=== PATIENT | female | born 1960 | race Caucasian/White ===

== ENCOUNTER 2017-04-19 11:21 | Emergency (ER) | payer OTHER ==
[~2017-04-19] VITALS: Ht 167.6 cm; Wt 54.4 kg
--- NOTE | 2017-04-19 11:21 | NUR ---
BG 32. ERMD AWARE.
[2017-04-19] MEDS ORDERED: DEXTROSE 50%-WATER 50 ML DISP.SYRIN ONE (11:25)
--- NOTE | 2017-04-19 11:28 | NUR ---
PURA FROM A PARKED CAR FOR POSSIBLE LOW BLOOD SUGAR. PATIENT RECEIVED AAO4. APPEAR IN NO APPARENT DISTRESS. RESPIRATION EVEN AND UNLABORED. SKIN IS WARM TO TOUCH AND NON DIAPHORETIC AFEBRILE. VSS
[2017-04-19] MEDS ORDERED: DEXTROSE 50%-WATER 50 ML DISP.SYRIN IVP ONE (11:30)
--- NOTE | 2017-04-19 11:31 | NUR ---
RAY AT BEDSIDE
[2017-04-19 11:45] LABS: BASOPHILS % (AUTO) 0.4 % (0.0-2.0); EOSINOPHILS # (AUTO) 0.1 /CMM (0.0-0.7); EOSINOPHILS % (AUTO) 0.8 % (0.0-6.0); HEMATOCRIT 48 % (33-45); HEMOGLOBIN 15.8 g/dL (11.5-14.8); LYMPHOCYTES # (AUTO) 1.4 /CMM (0.8-4.8); LYMPHOCYTES % (AUTO) 16.4 % (20.0-44.0); MEAN CORPUSCULAR HEMOGLOBIN 31 PG (26.0-33.0); MEAN CORPUSCULAR HGB CONC 33 g/dl (31.0-36.0); MEAN CORPUSCULAR VOLUME 93 fL (82-100); MONOCYTES # (AUTO) 0.4 /CMM (0.1-1.30); MONOCYTES % (AUTO) 5.2 % (2.0-12.0); NEUTROPHILS # (AUTO) 6.5 /CMM (1.8-8.9); NEUTROPHILS % (AUTO) 77.2 % (43.0-81.0); PLATELET COUNT (AUTO) 304 /CMM (150-450); RDW COEFFICIENT OF VARIATION 13.2 (11.5-15.0); RED BLOOD CELL COUNT(AUTO) 5.16 MIL/uL (4.0-5.2); WHITE BLOOD COUNT (AUTO) 8.4 K/uL (4.3-11.0)
[2017-04-19 11:56] LABS: CALCIUM, SERUM 9.7 mg/dL (8.5-10.1); CREATININE 0.9 mg/dL (0.6-1.3); POTASSIUM 3.9 mmol/L (3.5-5.1)
--- NOTE | 2017-04-19 12:47 | NUR ---
Patient does not wish to proceed with medical care recommended by Dr. pope. Patient given information related to possible complications, up to and including , which could occur as a result of leaving the hospital at this time. Patient verbalizes understanding of risks involved due to leaving against medical advice. Patient has signed AMA form.
[2017-04-19 12:48] VITALS: BP 138/82
--- NOTE | 2017-04-19 12:48 | NUR ---
Zuleyma hilliard in ED - 04/19/17 at 1248 by DAVID Patient discharged to home in stable condition. Written and verbal after care instructions given. Patient verbalizes understanding of instruction.
== END 2017-04-19 12:51 | disposition left against medical advice (07) ==
LOC: ER 11:31
DX: E11.649 Type 2 diabetes mellitus with hypoglycemia without coma (principal); E03.9 Hypothyroidism, unspecified; Z79.4 Long term (current) use of insulin
CPT/HCPCS: 36415; 80048; 82962; 85025; 93005; 96374; 99285; A4606; Z7610

== ENCOUNTER 2019-04-09 11:28 | Emergency (ER) | payer OTHER ==
[~2019-04-09] VITALS: Ht 167.6 cm; Wt 63.5 kg
--- NOTE | 2019-04-09 11:38 | NUR ---
CONCEPCION RA 102 "Bystander called she was found in her car acting strange +Sz during en route, on arrival BS-Low Given 250cc D10 repeat BS-208", to ER bed 6, hooked to monitor, BS upon arrival in ER 165, awaiting md meyer.
--- NOTE | 2019-04-09 11:40 | NUR ---
DR WALLIS AT BEDSIDE
--- NOTE | 2019-04-09 11:41 | NUR ---
patient refused blood tests and medications. only agreed to urinalysis.
--- NOTE | 2019-04-09 11:42 | NUR ---
URINE SAMPLE COLLECTED AND SENT TO LAB
[2019-04-09 11:51] LABS: APPEARANCE,URINE Clear (CLEAR); BILIRUBIN,URINE Negative (NEGATIVE); BLOOD, URINE Small Ery/uL (NEGATIVE); COLOR,URINE Yellow (YELLOW); KETONES,URINE 40 (NEGATIVE); LEUKOCYTE ESTERASE ,URINE Negative (NEGATIVE); NITRITE, URINE Negative (NEGATIVE); PH,URINE 7.5 (5.0-8.0); PROTEIN,URINE Trace mg/dl (NEGATIVE); UGLUCOSE 500 MG/DL mg/dL (NEGATIVE); UROBILINOGEN,URINE 0.2 EU/dL (0.2)
[2019-04-09 12:00] LABS: BACTERIA,URINE None seen /HPF (None Seen); SQUAMOUS EPITHELIAL CELL,UR Moderate /HPF (None Seen)
[2019-04-09] MEDS ORDERED: ONDANSETRON HCL/PF 4 MG/2 ML VIAL IVP ONE (12:00)
[2019-04-09] MEDS ORDERED: IV D5/ 0.9% NACL 1,000 ML IV ONE (12:00)
[2019-04-09 12:02] LABS: MUCUS,URINE Few /LPF (None Seen); URINE AMORPHOUS PHOSPHATES Many /HPF (None Seen)
--- NOTE | 2019-04-09 12:26 | NUR ---
IV removed. Catheter intact and site benign. Pressure and 4x4 applied to site. No bleeding noted.Patient discharged to home in stable condition. Written and verbal after care instructions given. Patient verbalizes understanding of instruction.
[2019-04-09 12:27] VITALS: BP 147/93
== END 2019-04-09 12:27 | disposition home or self-care (01) ==
LOC: ER 11:31
DX: E11.649 Type 2 diabetes mellitus with hypoglycemia without coma (principal); G93.41 Metabolic encephalopathy; E03.9 Hypothyroidism, unspecified
CPT/HCPCS: 81000-TC; 82962-TC

== ENCOUNTER 2020-01-12 22:39 | Inpatient (IN) | payer OTHER ==
[~2020-01-12] VITALS: Ht 157.5 cm; Wt 49.9 kg
--- NOTE | 2020-01-12 22:46 | NUR ---
PT AAOX3, BIBRA C/O CONFUSED. PT WAS FOUND WITH HIGH BLOOD SUGAR WHEN CHECKED EDGE CUTTER. UPON ARRIVAL BG CHECKED WHICH WAS HIGHER THAN 600. PLACED IN BED 2 ON MONITOR AND PULSE OX. NO ACUTE DISTRESS NOTED. MD AT BEDSIDE FOR EVAL. AWAITING ORDERS.
--- NOTE | 2020-01-12 22:52 | NUR ---
DR HEMPHILL AT BED SIDE
[2020-01-12] MEDS ORDERED: INSULIN REGULAR, HUMAN 100 UNIT/ML 10 ML VIAL IV ONE (23:00)
[2020-01-12] MEDS ORDERED: IV NS 0.9% 1,000 ML BAG IV ONE ×2 (23:00)
[2020-01-12] MEDS ORDERED: INSULIN REGULAR, HUMAN 100 UNIT/ML 10 ML VIAL ONE (23:13)
[2020-01-12 23:16] LABS: BASOPHILS % (AUTO) 0.7 % (0.0-2.0); EOSINOPHILS % (AUTO) 0.1 % (0.0-6.0); HEMATOCRIT 43 % (33-45); HEMOGLOBIN 14.4 g/dL (11.5-14.8); LYMPHOCYTES # (AUTO) 0.6 /CMM (0.8-4.8); LYMPHOCYTES % (AUTO) 10.3 % (20.0-44.0); MEAN CORPUSCULAR HGB CONC 34 g/dl (31.0-36.0); MEAN CORPUSCULAR VOLUME 94 fL (82-100); MONOCYTES # (AUTO) 0.7 /CMM (0.1-1.30); MONOCYTES % (AUTO) 12.8 % (2.0-12.0); NEUTROPHILS # (AUTO) 4.2 /CMM (1.8-8.9); NEUTROPHILS % (AUTO) 76.1 % (43.0-81.0); PLATELET COUNT (AUTO) 247 /CMM (150-450); RED BLOOD CELL COUNT(AUTO) 4.54 MIL/uL (4.0-5.2); WHITE BLOOD COUNT (AUTO) 5.5 K/uL (4.3-11.0)
--- NOTE | 2020-01-12 23:17 | NUR ---
AMBULATED TO THE RESTROOM
--- NOTE | 2020-01-12 23:21 | NUR ---
PT REMAINED IN THE RESTROOM. UNABLE TO PROVIDE URINE.
[2020-01-12 23:35] LABS: ALANINE AMINOTRANSFERASE 26 U/L (12-78); ALBUMIN 3.6 g/dL (3.4-5.0); ALKALINE PHOSPHATASE 83 U/L (46-116); ASPARTATE AMINOTRANSFERASE 45 U/L (15-37); BILIRUBIN,DIRECT 0.4 mg/dL (0.0-0.2); BILIRUBIN,TOTAL 1.4 mg/dL (0.2-1.0); CALCIUM, SERUM 9.1 mg/dL (8.5-10.1); CARBON DIOXIDE 32 mmol/L (21-32); UREA NITROGEN, BLOOD 41 mg/dL (7-18)
[2020-01-12 23:38] LABS: CHLORIDE 72 mmol/L (98-107); GLUCOSE 637 mg/dL (74-106); POTASSIUM 2.2 mmol/L (3.5-5.1); SODIUM SERUM 119 mmol/L (136-145)
[2020-01-12] MEDS ORDERED: POTASSIUM CL. PREMIX PERIPHER. 50 ML IV ONE (23:41)
[2020-01-12] MEDS ORDERED: POTASSIUM CHLORIDE 20 MEQ TAB.PRT.SR PO ONE (23:49)
[2020-01-12] MEDS ORDERED: POTASSIUM CL. PREMIX PERIPHER. 50 ML ONE (23:49)
--- NOTE | 2020-01-12 23:50 | NUR ---
PT BROUGHT TO CT AND BACK
[2020-01-13] MEDS ORDERED: LORAZEPAM INJ 2 MG/ML VIAL IV ONE
[2020-01-13] MEDS ORDERED: LORAZEPAM INJ 2 MG/ML VIAL ONE
[2020-01-13 00:02] LABS: THYROID STIMULATING HORMONE 0.869 uIU/mL (0.358-3.74)
[2020-01-13 00:05] LABS: SERUM AMMONIA < 10 umol/L (11-32)
[2020-01-13 00:14] LABS: ABG OXYGEN SATURATION 60.3 % (92.0-98.5); ABG PCO2 48.2 mmHg (35.0-45.0); ABG PH 7.432 (7.350-7.450); ABG PO2 31.2 mmHg (75.0-100.0); COHb 2.6 % (0.5-1.5); MetHb 0.4 % (0.0-1.5); O2Hb 58.5 % (94.0-97.0); SITE, ABG Other; VENT MODE, BG RA
--- NOTE | 2020-01-13 00:19 | NUR ---
PT RESTING COMFORTABLY. PT IS CONFUSED. PT SPEAKING ABOUT INSULIN DOSES.
[2020-01-13 00:46] LABS: ALCOHOL, BLOOD < 3 mg/dL (0-0)
[2020-01-13] MEDS ORDERED: POTASSIUM CL. PREMIX PERIPHER. 50 ML ONE ×2 (01:01→02:07)
--- NOTE | 2020-01-13 01:10 | NUR ---
PT AMBULATED TO THE RESTROOM, SEEMS CONFUSED. ONCE IN THE RESTROOM, PT STATED "I AM WAITING FOR YOU GUYS FOR ME TO PEE." PT WAS ON THE TOILET..
[2020-01-13] MEDS ORDERED: POTASSIUM CL. PREMIX PERIPHER. 50 ML IV SCH ×3 (02:00)
--- NOTE | 2020-01-13 02:06 | NUR ---
BED ASSIGNMENT IS 307-2
--- NOTE | 2020-01-13 02:18 | NUR ---
REPORT GIVEN TO MONIE BARAHONA FOR PB
--- NOTE | 2020-01-13 02:20 | NUR ---
Endorsed potassium chloride 10meq/50ml to Dmitriy BARAHONA.
[2020-01-13 02:40] VITALS: BP 97/57
--- NOTE | 2020-01-13 02:40 | NUR ---
TELE ADMITTING NOTE: Received report from ER Nurse, Rafat. Received patient in the unit at 0240, on a gurney. Patient was asleep. Patient is easily arousable through touch and calling her name but she is uncooperative. Patient refused head to toe assessment, refused skin assessment, refused wound photos. Noted IV access on right AC, 18 g. Flushes well, patent, no redness, no infiltration, and infusing Potassium 10mEq. Attempted to orient patient in the room but she was not cooperative. Safety precaution in place, bed in lowest level, brakes are on, alarm is on, side rails x2 are up, and call light is within reach. Will continue to monitor.
--- NOTE | 2020-01-13 02:45 | NUR ---
PT TRANSFERED PER ACLS PROTOCOL
[2020-01-13] MEDS ORDERED: INSULIN REGULAR, HUMAN 100 UNIT/ML 3 ML VIAL SQ PRN (03:00)
[2020-01-13] MEDS ORDERED: DEXTROSE 50%-WATER 50 ML DISP.SYRIN IV PRN (03:00)
[2020-01-13 03:10] VITALS: BP 97/57
[2020-01-13 04:00] VITALS: BP 93/43
[2020-01-13] MEDS ORDERED: IV PREMIX NS +20MEQ KCL 1 L IV ONE (04:10)
[2020-01-13] MEDS: Potassium Chloride 20 MEQ in IV NS 0.9% 1,000 ML IV SCH ×2 (05:10→13:45)
[2020-01-13 06:21] LABS: BASOPHILS % (AUTO) 0.6 % (0.0-2.0); EOSINOPHILS % (AUTO) 0.1 % (0.0-6.0); HEMATOCRIT 44 % (33-45); LYMPHOCYTES # (AUTO) 1.7 /CMM (0.8-4.8); LYMPHOCYTES % (AUTO) 25.1 % (20.0-44.0); MEAN CORPUSCULAR HGB CONC 34 g/dl (31.0-36.0); MEAN CORPUSCULAR VOLUME 94 fL (82-100); MONOCYTES % (AUTO) 15.2 % (2.0-12.0); PLATELET COUNT (AUTO) 203 /CMM (150-450); RED BLOOD CELL COUNT(AUTO) 4.71 MIL/uL (4.0-5.2); WHITE BLOOD COUNT (AUTO) 6.7 K/uL (4.3-11.0)
[2020-01-13 06:44] LABS: CALCIUM, SERUM 8.7 mg/dL (8.5-10.1); CREATININE 1.4 mg/dL (0.6-1.3)
[2020-01-13 06:45] LABS: THYROID STIMULATING HORMONE 0.675 uIU/mL (0.358-3.74)
[2020-01-13] MEDS: BLOOD SUGAR DIAGNOSTIC 1 EACH STRIP VI SCH ×4 (06:56→22:08)
[2020-01-13] MEDS: *INSULIN REGULAR(HUMULIN R)HUM 100 UNIT/ML VIAL SQ PRN ×2 (06:58→22:11)
--- NOTE | 2020-01-13 07:07 | NUR ---
GRAIN WEIGHER CLOSING NOTE: Patient in bed sleeping comfortably but easily aroused. Patient on room air. No distress or SOB noted. Patient breathing equal and unlabored. Safety precaution is in place, bed is in lowest level, brakes are on, side rails x2 are up, and call light is within reach. Will endorse to next shift.
--- NOTE | 2020-01-13 07:20 | NUR ---
MS RN NOTES PATIENT IN BED ALERT ORIENTED X 3. NO ACUTE DISTRESS NOTED. BREATHING UNLABORED. NO SOB NOTED. IV ACCESS PATENT AND INTACT, NO REDNESS, NO SWELLING NOTED. SAFETY MEASURES IN PLACE. CALL LIGHT WITHIN REACH. WILL CONTINUE TO MONITOR ACCORDINGLY.
[2020-01-13] MEDS ORDERED: INSULIN GLARGINE, 100 UNIT/ML CARTRIDGE SQ SCH ×2 (08:00→21:00)
[2020-01-13 08:01] LABS: LYMPHOCYTES % (MANUAL) 32 % (16-48); MONOCYTES % (MANUAL) 9 % (0-11.0); NEUTROPHILS % (MANUAL) 59 (42-76)
[2020-01-13] MEDS ORDERED: INSU100V36 SQ (08:03)
[2020-01-13] MEDS ORDERED: INSU100I26 SQ (08:03)
[2020-01-13] MEDS ORDERED: LEVO100T9 PO (08:03)
--- NOTE | 2020-01-13 08:17 | NUR ---
VERIFY REP NOTES RECEIVED A CALL FROM [facility] POTASSIUM LEVEL CRITICALLY LOW 2.0 , RELAYED TO DR TERRY WELCH PRESENT ON THE FLOOR , NO NEW ORDER MADE, TO PUT ORDERS IN.
[2020-01-13] MEDS ORDERED: POTASSIUM CHLORIDE 10 MEQ/50 ML PREMIXED IVPB FOR PERIPHERAL LINE IV ONE (08:30)
[2020-01-13] MEDS ORDERED: POTASSIUM CHLORIDE 20 MEQ TAB.PRT.SR PO ONE ×2 (08:30)
[2020-01-13] MEDS: POTASSIUM CL. PREMIX PERIPHER. 50 ML IV SCH ×2 (09:22→10:35)
[2020-01-13] MEDS: LEVOTHYROXINE SODIUM 100 MCG TABLET PO SCH (09:22)
[2020-01-13] MEDS: POTASSIUM CHLORIDE 20 MEQ TAB.PRT.SR PO SCH ×2 (09:22→13:16)
--- NOTE | 2020-01-13 10:00 | NUR ---
MS RN NOTES PATIENT REFUSING SKIN ASSESSMENT DESPITE OF EXPLANATION OF RISKS AND BENEFITS.
--- NOTE | 2020-01-13 11:00 | NUR ---
MS RN NOTES PATIENT REFUSING URINE COLLECTED AT THIS TIME , WILL OFFER AGAIN.
--- NOTE | 2020-01-13 12:00 | NUR ---
MS RN NOTES PATIENT REFUSED ACCU CHECK DESPITE OF EXPLANATION OF RISKS AND BENEFITS.
--- NOTE | 2020-01-13 12:30 | NUR ---
MS RN NOTES PATIENT REMOVED INTERPRETIVE PROGRAM COORDINATOR DESPITE OF EXPLANATION OF RISKS AND BENEFITS, DR STEWART MADE AWARE. PATIENT ALERT ORIENTED X 3. NO ACUTE DISTRESS NOTED.
--- NOTE | 2020-01-13 14:58 | NUR ---
Electronic Security Specialist met with the patient at bedside. Patient was alert, laying curled up in the bed, with no eye contact to the social media marketing specialist. Patient was receptive to meeting with SW but right away stated "I was brought her by false pretenses by my boss. I want to leave." SW acknowledged this and asked why she thought it was false and stated "Its a false pretense". Pt stated that she has been working at the [employer] for 16 years and wants to leave. Patient was able to verify demographics. Patient reports no history of suicidal/homicidal ideations. Patient does not seem to be a harm to herself or others at this time. Patient does report smoking cigarettes 3x a week, 3 buds a day. Patient did not want any resources, pt asked for her keys " Tell the nurses to find my keys faster so I can leave". SW to remain available for all needs.
--- NOTE | 2020-01-13 18:02 | NUR ---
MS RN NOTES PATIENT REFUSED TO BE TRANSFERRED TO [facility], DR STEWART MADE AWARE.
--- NOTE | 2020-01-13 18:02 | NUR ---
MS RN NOTES PATIENT NOTED WITH BLOOD SUGAR OF 48, ALERT ORIENTED X 3. NO ACUTE DISTRESS NOTED. ASYMPTOMATIC. ORANGE JUICE WAS GIVEN AND EATING HER DINNER. NOTIFIED DR TERRY WELCH WITH NEW ORDER TO DISCONTINUE Insulin Lantus 20 UNIT SQ DAILY CHANGE TO Insulin Lantus 13 UNIT SQ DAILY AND CONTINUE TO MONITOR PATIENT. ORDER CLARIFIED AND READ BACK WITH MD, NOTED AND CARRIED OUT. DR STEWART ALSO MADE AWARE THAT PATIENT WANTS TO GO HOME AMA BUT MISSING HER CAR KEYS AND SHE DOESN'T WANT TO LEAVE HOSPITAL WITHOUT THE KEYS. DR STEWART SAID TO NOTIFY HIM IF PATIENT GO AMA OR STAY. LOOKED AROUND THE ROOM AND BELONGINGS BUT THE KEYS ARE NOT FOUND. CALLED ER AND CT TO CHECK IF KEYS MAY BE THERE BUT NOT FOUND. NOTIFIED SUPERVISION SARIAH MADE AWARE SAID INVESTIGATION WILL BE DONE TO FIND THE KEYS. DR STEWART MADE AWARE THAT PATIENT PULLED JUST PULLED OUT IV ACCESS AND REFUSING NEW LINE STARTED. PATIENT MADE AWARE AND SAID " I'M NOT GOING HOME YET WITHOUT MY KEYS".
--- NOTE | 2020-01-13 18:02 | NUR ---
MS BARAHONA NOTES PATIENT REFUSING URINE COLLECTED AT THIS TIME ,DR TERRY CADET. Addendum: 01/13/20 at 2040 by TIFFANIE BRAGG RN DESPITE OF EXPLANATION OF RISKS AND BENEFITS
--- NOTE | 2020-01-13 18:35 | NUR ---
MS RN NOTES BLOOD SUGAR RECHECKED NOTED 108. ALERT ORIENTED X 3. NO ACUTE DISTRESS NOTED. WILL CONTINUE TO MONITOR PATIENT.
--- NOTE | 2020-01-13 19:00 | NUR ---
MS RN NOTES PATIENT IN BED ALERT ORIENTED X 3. NO ACUTE DISTRESS NOTED. BREATHING UNLABORED. NO SOB NOTED. NO IV ACCESS AT THIS TIME, PATIENT REFUSING NEW LINE STARTED, DR STEWART AWARE. NO SIGN AND SYMPTOMS OF HYPOGLYCEMIA NOTED. NEEDS ATTENDED AND ANTICIPATED. SAFETY MEASURES IN PLACE. CALL LIGHT WITHIN REACH. PATIENT SAID SHE'S NOT GOING HOME WITHOUT HER KEYS. WILL ENDORSE TO NIGHT NURSE FOR CONTINUITY OF CARE.
[2020-01-13 20:00] VITALS: BP 98/49
--- NOTE | 2020-01-13 20:11 | NUR ---
MS/TELE/RN DURING BEDSIDE REPORT AT PATIENT WAS LAYING ON BED AWAKE, ALERT, ORIENTED, UPSET DUE TO HER MISSING KEYS. PATIENT WANTS TO GO AMA BUT REFUSES TO GO UNLESS SHE HAS THE KEYS, EXPLANATION WAS PROVIDED BY THE OUTGOING RN. NO IV ACCESS MD AWARE PER RN REPORT, STILL REFUSED TELE BOX ON, WILL MONITOR.
--- NOTE | 2020-01-13 22:30 | NUR ---
MS/TELE/RN OFFERED SNACK BUT REFUSED.
--- NOTE | 2020-01-14 02:14 | NUR ---
MS/TELE/RN PATIENT IS SLEEPING, APPEAR COMFORTABLE, NO SIGNS OF DISTRESS NOTED, CALL LIGHT IN REACH. WILL CONTINUE TO MONITOR.
--- NOTE | 2020-01-14 06:19 | NUR ---
MS/TELE/RN ACCU CHECK BLOOD SUGAR WAS 28, RECHECKED, 30. PATIENT WAS ASYMPTOMATIC, AWAKE, ALERT, ORIENTED, UPSET, ABOUT HER KEYS THAT WERE MISSING, YELLING. PATIENT HAS NO IV ACCESS, ORANGE JUICE X 2 PACKS, KAYLIE CRACKERS AND APPLE JUICE WERE GIVEN, WILL RECHECK BLOOD SUGAR. WILL MONITOR.
[2020-01-14] MEDS: LEVOTHYROXINE SODIUM 100 MCG TABLET PO SCH (06:37)
--- NOTE | 2020-01-14 06:42 | NUR ---
MS/TELE/RN ACCU CHECK BLOOD SUGAR, 51, ASYMPTOMATIC, 2 PACKS MORE OF APPLE JUICE AND 2 PACKS KAYLIE CRACKERS WERE GIVEN. WILL RECHECK BLOOD SUGAR
[2020-01-14 06:44] LABS: BASOPHILS # (AUTO) 0.1 /CMM (0.0-0.2); BASOPHILS % (AUTO) 1.6 % (0.0-2.0); EOSINOPHILS % (AUTO) 1.1 % (0.0-6.0); HEMATOCRIT 42 % (33-45); HEMOGLOBIN 14.1 g/dL (11.5-14.8); LYMPHOCYTES # (AUTO) 1.7 /CMM (0.8-4.8); MEAN CORPUSCULAR HGB CONC 34 g/dl (31.0-36.0); MEAN CORPUSCULAR VOLUME 94 fL (82-100); MONOCYTES # (AUTO) 0.5 /CMM (0.1-1.30); MONOCYTES % (AUTO) 10.2 % (2.0-12.0); NEUTROPHILS # (AUTO) 2.8 /CMM (1.8-8.9); NEUTROPHILS % (AUTO) 54.1 % (43.0-81.0); PLATELET COUNT (AUTO) 249 /CMM (150-450); RED BLOOD CELL COUNT(AUTO) 4.45 MIL/uL (4.0-5.2); WHITE BLOOD COUNT (AUTO) 5.2 K/uL (4.3-11.0)
--- NOTE | 2020-01-14 07:30 | NUR ---
MS/RN Opening note Patient received from material handler 2nd shift. Uncooperative, refusing any care at this time, shouting to be left alone. Remains without any IV access, MD aware. Will continue to monitor and ensure safety.
[2020-01-14] MEDS: BLOOD SUGAR DIAGNOSTIC 1 EACH STRIP VI SCH (07:36)
[2020-01-14 08:00] VITALS: BP 77/44
--- NOTE | 2020-01-14 08:58 | NUR ---
MS/RN Medications Insulin held due to hypoglycemia.
[2020-01-14] MEDS ORDERED: INSULIN GLARGINE, 100 UNIT/ML CARTRIDGE SQ SCH ×2 (09:00)
--- NOTE | 2020-01-14 10:20 | NUR ---
MS/corner brace block machine operator Patient discharged to home in stable condition. Heplock previously removed by patient, name bands removed. All personal belongs apart from hair band, sweater and car keys accounted for on belongings list. Patient refused to sign paper as all belongings were not returned to her. Exit care prepared, again, patient refused to sign paperwork. All papers therefore signed by two nurses. Attempted to give education as to regards signs and symptoms of low or high blood sugar, but refusing any education. Escorted to main lobby by JAMI, taxi voucher provided.
[2020-01-14 11:10] LABS: CALCIUM, SERUM 8.9 mg/dL (8.5-10.1); POTASSIUM 3.7 mmol/L (3.5-5.1)
--- NOTE | 2020-01-14 12:12 | NUR ---
pt got discharged home. Received call from lab regarding elevated glucose level, called the phone X3 that listed on her chart, but unsuccessful. Dr. Galvez informed.
== END 2020-01-14 10:15 | disposition home or self-care (01) | DRG 420 ==
LOC: ER 22:43 → TELE 01-13 02:27 → MED 01-14 08:59
PROVIDERS: ADMIT Internal Medicine; ATTEND Internal Medicine
DX: E11.00 Type 2 diabetes mellitus with hyperosmolarity without nonketotic hyperglycemic-hyperosmolar coma (NKHHC) (principal); I10 Essential (primary) hypertension; E03.9 Hypothyroidism, unspecified; E86.0 Dehydration; E87.1 Hypo-osmolality and hyponatremia; E87.6 Hypokalemia; N17.9 Acute kidney failure, unspecified; Z91.19 Patient's noncompliance with other medical treatment and regimen; Z79.4 Long term (current) use of insulin; G93.40 Encephalopathy, unspecified
CPT/HCPCS: 36415; 36600; 70450-TC; 71045-TC; 80048-TC; 80076-TC; 82140-TC; 82803-TC; 82962-TC; 83735-TC; 84443-TC; 84484-TC; 85025-TC; 87081-TC; C9803-CS; G0378; G0480; J1815; J2060; J3480; J3490; J7030